=== PATIENT | male | born 1985 | race Caucasian/White ===

== ENCOUNTER 2021-07-14 12:33 | Emergency (ER) | payer OTHER ==
[~2021-07-14] VITALS: Ht 177.8 cm; Wt 133.8 kg
[2021-07-14] MEDS ORDERED: NORCO 5-325 TA1 EACH PO (14:10)
[2021-07-14] MEDS ORDERED: ROBAXIN750 MG PO (14:10)
== END 2021-07-14 17:05 | disposition home or self-care (01) ==
LOC: FER 12:33
DX: M75.42 Impingement syndrome of left shoulder (principal); G56.02 Carpal tunnel syndrome, left upper limb; Z28.310 Unvaccinated for COVID-19; X58.XXXA Exposure to other specified factors, initial encounter; Y92.009 Unspecified place in unspecified non-institutional (private) residence as the place of occurrence of the external cause
CPT/HCPCS: 73030